=== PATIENT | female | born 1945 | race Asian ===

== ENCOUNTER → 2016-08-11 | Outpatient (CLI) | payer OTHER ==
[~2016-08-11] MED LIST: ALBU8HFA IH; AMLO-511 PO; ASPI81 PO; CHOL200016 PO; FERR324T4 PO; HEP5KI SQ; INSLAN SQ; PANT40TA25 PO; SIMV-260 PO
== END | disposition home or self-care (01) ==
LOC: RADMN 09:26
PROVIDERS: ATTEND Internal Medicine Gastroenterology
DX: R13.10 Dysphagia, unspecified (principal)
CPT/HCPCS: 74230; 92611